=== PATIENT | female | born 1990 | race Asian ===

== ENCOUNTER 2019-10-13 11:34 | Emergency (ER) | payer OTHER ==
[~2019-10-13] VITALS: Ht 157.5 cm; Wt 77.1 kg
[2019-10-13 11:53] LABS: Urine WBC None Seen /hpf (0 - 5)
[2019-10-13 12:06] LABS: Urine Bacteria NONE SEEN /hpf (None Seen); Urine Blood Negative /uL (Negative); Urine Specific Gravity 1.012 (1.001-1.035)
[2019-10-13 12:17] LABS: Basophils # (auto) 0.1 uL; Eosinophils # (auto) 0.1 uL; Lymphocytes # (auto) 1.4 uL; Monocytes # (auto) 0.5 uL; Neutrophils # (auto) 5.7 uL
[2019-10-13 12:19] LABS: Basophils % (auto) 0.8 % (0.0-2.0); Eosinophils % (auto) 1.6 % (0.0-7.0); Hemoglobin 11.8 g/dL (12.2-16.2); Lymphocytes % (auto) 18.3 % (10.0-50.0); Mean Corpuscular Hemoglobin 24.8 pg (28.0-32.0); Mean Corpuscular Hgb Conc. 31.8 g/dL (32.0-36.0); Monocytes % (auto) 6.7 % (0.0-12.0); Neutrophils % (auto) 72.6 % (37.0-80.0); Nucleated Red Blood Cells % 0.1 %; Platelet Count (auto) 260 10^3/uL (140-450); Red Blood Cells 4.74 10^6/uL (4.0-5.20); Red Cell Distribution Width 18.8 % (11.8-14.3); White Blood Cell 7.9 10^3/uL (4.4-10.8)
[2019-10-13 12:42] LABS: BUN/Creatinine Ratio 10.3; Calcium 8.4 mg/dL (8.5-10.1); Potassium 3.8 mmol/L (3.5-5.1)
[2019-10-13 17:15] VITALS: BP 124/59
== END 2019-10-13 18:02 | disposition home or self-care (01) ==
LOC: ER 11:34
DX: O20.0 Threatened abortion (principal); Z3A.01 Less than 8 weeks gestation of pregnancy
CPT/HCPCS: 36415; 76801; 80048; 81001; 84702; 85025

== ENCOUNTER → 2022-06-19 | Outpatient (CLI) | payer OTHER ==
[2022-06-19 11:39] LABS: Amphetamine Screen, Urine NEGATIVE (NEGATIVE); Barbiturate Scree,Urine NEGATIVE (NEGATIVE); Benzodiazephine Screen, Urine NEGATIVE (NEGATIVE); Cannabinoid Screen, Urine NEGATIVE (NEGATIVE); Cocaine Screen, Urine NEGATIVE (NEGATIVE); Opiate Scree,Urine NEGATIVE (NEGATIVE); Phencyclidine Screen, Urine NEGATIVE (NEGATIVE)
== END | disposition home or self-care (01) ==
LOC: LAB 09:59
PROVIDERS: ATTEND Obstetrics & Gynecology
DX: Z34.80 Encounter for supervision of other normal pregnancy, unspecified trimester (principal); Z3A.00 Weeks of gestation of pregnancy not specified
CPT/HCPCS: 80307

== ENCOUNTER 2022-07-09 11:15 | Observation (INO) | payer OTHER | END 2022-07-09 14:25 | disposition home or self-care (01) | LOC: UNDOADMOB 11:15 → LDRP 11:15 → UNDODISOB 14:25 | PROVIDERS: ADMIT Obstetrics & Gynecology; ATTEND Obstetrics & Gynecology | DX: O48.0 Post-term pregnancy (principal); O62.9 Abnormality of forces of labor, unspecified; Z3A.40 40 weeks gestation of pregnancy | CPT/HCPCS: 59025; 76805; 76818; 81002; 87081; 94760; G0378 ==

== ENCOUNTER 2022-07-11 04:30 | Inpatient (IN) | payer OTHER ==
[~2022-07-11] VITALS: Ht 157.5 cm; Wt 88.0 kg
[2022-07-11] VITALS (13 sets, daily range): BP systolic 99–121; BP diastolic 46–64
[2022-07-11] MEDS ORDERED: WITCH HAZEL-GLYCERIN PAD TOP PRN (04:45)
[2022-07-11] MEDS ORDERED: BUTORPHANOL TARTRATE 2 MG/1 ML VIAL IV PRN ×2 (04:45)
[2022-07-11] MEDS ORDERED: PHISODERM TOP SOLN 240ML BTL TOP PRN (04:45)
[2022-07-11] MEDS ORDERED: PROMETHAZINE HCL 25 MG/ML 1ML IV PRN (04:45)
[2022-07-11] MEDS ORDERED: TERBUTALINE SULFATE 1 MG/ML 1ML VIAL SC PRN (04:45)
[2022-07-11] MEDS ORDERED: LIDOCAINE 2%HCL (LOCAL ANESTH.) INJ 10ml MDV IJ PRN (04:45)
[2022-07-11] MEDS ORDERED: DERMOPLAST 60ML BOTTLE TOP PRN (04:45)
[2022-07-11] MEDS ORDERED: PENICILLIN G POT 5MIL/D5 50ML 50 ML IV ONE (05:00)
[2022-07-11] MEDS ORDERED: CARBOPROST TROMETHAMINE 250 MCG/1ML VIAL IM PRN (05:15)
[2022-07-11] MEDS ORDERED: miSOPROStol 100 mcg TAB PR PRN (05:15)
[2022-07-11] MEDS ORDERED: miSOPROStol 100 mcg TAB SL PRN (05:15)
[2022-07-11] MEDS: LACTATED RINGER'S 1,000 ML IV SCH ×4 (05:22→20:53)
[2022-07-11] MEDS ORDERED: LACT. RINGERS/OXYTOCIN 20UNITS 1,000 ML IV SCH (05:30)
[2022-07-11] MEDS ORDERED: miSOPROStol 50 MCG per PRE-CUT 1/2 TAB PO PRN (07:15)
[2022-07-11 07:31] LABS: Basophils # (auto) 0.1 10 ^3/uL (0-0.2); Eosinophils # (auto) 0.1 10 ^3/uL (0-0.8); Hemoglobin 9.9 g/dL (12.2-16.2); Lymphocytes # (auto) 1.2 10 ^3/uL (0.4-5.4); Mean Corpuscular Hemoglobin 23.8 pg (28.0-32.0); Monocytes # (auto) 0.8 10 ^3/uL (0-1.3); Neutrophils # (auto) 6.1 10 ^3/uL (1.6-8.6)
[2022-07-11 07:33] LABS: Eosinophils % (auto) 1.2 % (0.0-7.0); Hematocrit 31.5 % (36.0-46.0); Lymphocytes % (auto) 14.7 % (10.0-50.0); Mean Corpuscular Hgb Conc. 31.3 g/dL (32.0-36.0); Mean Corpuscular Volume 76.3 fL (80.0-100.0); Monocytes % (auto) 9.8 % (0.0-12.0); Neutrophils % (auto) 73.3 % (37.0-80.0); Red Blood Cells 4.13 10^6/uL (4.0-5.20); Red Cell Distribution Width 19.3 % (11.8-14.3); White Blood Cell 8.3 10^3/uL (4.4-10.8)
[2022-07-11 07:41] LABS: Urine Bacteria NONE SEEN /hpf (None Seen); Urine Blood Negative /uL (Negative); Urine Specific Gravity 1.012 (1.001-1.035); Urine WBC <1 /hpf (0 - 5)
[2022-07-11 07:49] LABS: INR 0.91 (0.9-1.15)
[2022-07-11 07:57] LABS: Albumin 2.3 g/dL (3.4-5.0); Calcium 7.9 mg/dL (8.5-10.1); Potassium 3.8 mmol/L (3.5-5.1)
[2022-07-11 07:58] LABS: Alcohol, Urine < 3.0 mg/dL (0-10); Amphetamine Screen, Urine NEGATIVE (NEGATIVE); Barbiturate Scree,Urine NEGATIVE (NEGATIVE); Benzodiazephine Screen, Urine NEGATIVE (NEGATIVE); Cannabinoid Screen, Urine NEGATIVE (NEGATIVE); Cocaine Screen, Urine NEGATIVE (NEGATIVE); Opiate Scree,Urine NEGATIVE (NEGATIVE); Phencyclidine Screen, Urine NEGATIVE (NEGATIVE)
[2022-07-11 07:59] LABS: BUN/Creatinine Ratio 13.5
[2022-07-11 08:02] LABS: Bilirubin, Total 0.3 mg/dL (0.2-1.0); Total Protein 6.4 g/dL (6.4-8.2)
[2022-07-11] MEDS ORDERED: DOCU-94 PO (08:58)
[2022-07-11] MEDS ORDERED: IBUP800T27 PO (08:58)
[2022-07-11] MEDS ORDERED: HYDR-4902 PO (08:58)
[2022-07-11] MEDS ORDERED: SODIUM CITR/CITRIC ACID ORAL SOLN 30 ML ONE (08:58)
[2022-07-11] MEDS ORDERED: ONDANSETRON HCL 4 MG/2 ML VIAL IV PRN ×2 (09:00→10:45)
[2022-07-11] MEDS ORDERED: ceFAZolin 2 GM in D5W 5% 100 ML IV ONE (09:00)
[2022-07-11] MEDS ORDERED: PENICILLIN G POTASSIUM 2,500,000 UNITS in D5W 5% 50 ML IV SCH (09:00)
[2022-07-11] MEDS ORDERED: ceFAZolin 1GM/50ML 50 ML IV SCH (09:00)
[2022-07-11] MEDS ORDERED: LACT. RINGERS/OXYTOCIN 20UNITS 1,000 ML IV ONE (09:00)
[2022-07-11] MEDS ORDERED: GUM (CHEWING) 1 GUM CHEW CHEW ONE (09:00)
[2022-07-11] MEDS ORDERED: SODIUM CITR/CITRIC ACID ORAL SOLN 30 ML PO SCH (09:00)
[2022-07-11] MEDS ORDERED: TETRACAINE 1% INJ 2 ML VIAL IJ ONE (09:03)
[2022-07-11] MEDS ORDERED: MORPHINE SULF PF 5 MG/10 ML VIAL ONE (09:06)
[2022-07-11] MEDS ORDERED: fentaNYL CITRATE 100 MCG/2 ML VL ONE (09:37)
[2022-07-11] MEDS ORDERED: LACT. RINGERS/OXYTOCIN 20UNITS 500 ML IV ONE ×2 (10:00)
[2022-07-11] MEDS ORDERED: oxyTOCIN 10 UNIT/ML 10ML VIAL ONE (10:32)
[2022-07-11] MEDS ORDERED: NALBUPHINE HCL 10 MG/1ml INJECTION SUBCUT ONE (10:45)
[2022-07-11] MEDS ORDERED: diphenhdrAMINE HCL 50 MG/1 ML VL IV PRN (10:45)
[2022-07-11] MEDS ORDERED: NALOXONE HCL 0.4 MG/ML VIAL IV PRN (10:45)
[2022-07-11] MEDS ORDERED: KETOROLAC TROMETH 30 MG/ML 1ML VIAL IV PRN (10:45)
[2022-07-11] MEDS ORDERED: HYDROmorphone HCL 2 MG/ML VL/or syr IV PRN ×2 (10:45→11:30)
[2022-07-11] MEDS ORDERED: DexAMETHasone SOD PHOS 10MG/1ML VIAL INJ IV PRN (10:45)
[2022-07-11] MEDS ORDERED: HYDROmorphone HCL 2 MG/ML VL/or syr ONE (10:49)
[2022-07-11] MEDS: HYDROmorphone HCL 2 MG/ML VL/or syr ONE ×2 (11:00→11:11)
[2022-07-11] MEDS ORDERED: SUCCINYLCHOLINE CHLORIDE 20 MG/ML 10ML VIAL IV ONE (11:05)
[2022-07-11] MEDS: ACETAMINOPHEN IV 1000 MG/100ML (10MG/ML) IV PRN ×2 (12:49→23:37)
[2022-07-11] MEDS ORDERED: ePHEDrine SULFATE 50 MG/ML AMP IV ONE (16:48)
[2022-07-11] MEDS ORDERED: PROPOFOL 10 MG/ML 20 ML IV ONE (16:48)
[2022-07-11] MEDS: ceFAZolin 1GM/50ML 50 ML IV SCH (17:04)
[2022-07-11 20:32] LABS: Basophils # (auto) 0.1 10 ^3/uL (0-0.2); Eosinophils # (auto) 0 10 ^3/uL (0-0.8); Hemoglobin 8.2 g/dL (12.2-16.2); Lymphocytes # (auto) 1.2 10 ^3/uL (0.4-5.4); Red Blood Cells 3.42 10^6/uL (4.0-5.20)
[2022-07-11 20:34] LABS: Basophils % (auto) 0.4 % (0.0-2.0); Eosinophils % (auto) 0.1 % (0.0-7.0); Hematocrit 26.8 % (36.0-46.0); Lymphocytes % (auto) 9.8 % (10.0-50.0); Mean Corpuscular Hgb Conc. 30.5 g/dL (32.0-36.0); Mean Corpuscular Volume 78.4 fL (80.0-100.0); Monocytes # (auto) 0.8 10 ^3/uL (0-1.3); Monocytes % (auto) 6.7 % (0.0-12.0); Red Cell Distribution Width 19.9 % (11.8-14.3)
[2022-07-12] VITALS (14 sets, daily range): BP systolic 96–119; BP diastolic 49–69
[2022-07-12] MEDS ORDERED: SODIUM FERR GLUC 62.5MG/5ML 125 MG in SODIUM CHL 0.9% 100 ML IV SCH ×2
[2022-07-12] MEDS: ceFAZolin 1GM/50ML 50 ML IV SCH ×2 (01:00→08:04)
[2022-07-12 06:54] LABS: Eosinophils # (auto) 0 10 ^3/uL (0-0.8); Eosinophils % (auto) 0.2 % (0.0-7.0); Hematocrit 23.9 % (36.0-46.0); Hemoglobin 7.6 g/dL (12.2-16.2); Mean Corpuscular Hgb Conc. 31.8 g/dL (32.0-36.0)
[2022-07-12 06:56] LABS: Basophils # (auto) 0 10 ^3/uL (0-0.2); Basophils % (auto) 0.3 % (0.0-2.0); Lymphocytes # (auto) 1.1 10 ^3/uL (0.4-5.4); Lymphocytes % (auto) 9.9 % (10.0-50.0); Mean Corpuscular Hemoglobin 24.3 pg (28.0-32.0); Mean Corpuscular Volume 76.6 fL (80.0-100.0); Monocytes # (auto) 0.9 10 ^3/uL (0-1.3); Monocytes % (auto) 7.9 % (0.0-12.0); Neutrophils # (auto) 8.9 10 ^3/uL (1.6-8.6); Neutrophils % (auto) 81.7 % (37.0-80.0); Red Blood Cells 3.13 10^6/uL (4.0-5.20); Red Cell Distribution Width 19.6 % (11.8-14.3); White Blood Cell 10.9 10^3/uL (4.4-10.8)
[2022-07-12 07:07] LABS: RPR Non Reactive (Non Reactive)
[2022-07-12] MEDS ORDERED: BISACODYL 10 MG RECT SUPP PR PRN (07:30)
[2022-07-12] MEDS ORDERED: HYDROcodone-ACET 5/325MG TAB PO PRN (07:30)
[2022-07-12] MEDS: ACETAMINOPHEN IV 1000 MG/100ML (10MG/ML) IV PRN (08:05)
[2022-07-12] MEDS ORDERED: FER325T PO (08:24)
[2022-07-12] MEDS ORDERED: FERROUS SULFATE 325mg EC TAB PO SCH (10:00)
[2022-07-12] MEDS: FERROUS SULFATE 325mg EC TAB PO SCH ×2 (12:00→18:57)
[2022-07-12] MEDS: HYDROcodone-ACET 5/325MG TAB PO PRN ×2 (12:11→18:58)
[2022-07-12] MEDS: DOCUSATE SOD 100 MG CAP PO SCH ×2 (12:12→21:57)
[2022-07-12] MEDS: SIMETHICONE 80 MG CHEWABLE TABLET PO SCH ×3 (12:12→21:57)
[2022-07-12] MEDS: DOCUSATE CALCIUM 240 MG CAP PO SCH (12:12)
[2022-07-12] MEDS: IBUPROFEN 800 MG TAB PO PRN (15:55)
[2022-07-13] MEDS: IBUPROFEN 800 MG TAB PO PRN ×3 (00:09→21:32)
[2022-07-13 03:30] VITALS: BP 115/50
[2022-07-13] MEDS: HYDROcodone-ACET 5/325MG TAB PO PRN ×4 (03:56→23:30)
[2022-07-13] MEDS: SIMETHICONE 80 MG CHEWABLE TABLET PO SCH ×4 (05:49→21:31)
[2022-07-13 07:00] VITALS: BP 118/56
[2022-07-13] MEDS ORDERED: SERT25TA84 PO (08:05)
[2022-07-13] MEDS: SERTRALINE HCL 50 MG TAB PO SCH (10:21)
[2022-07-13] MEDS: DOCUSATE CALCIUM 240 MG CAP PO SCH (10:21)
[2022-07-13] MEDS: DOCUSATE SOD 100 MG CAP PO SCH ×2 (10:22→21:31)
[2022-07-13] MEDS: FERROUS SULFATE 325mg EC TAB PO SCH ×3 (10:32→21:31)
[2022-07-13 11:00] VITALS: BP 115/56
[2022-07-13 14:57] VITALS: BP 116/57
[2022-07-13 19:20] VITALS: BP 132/79
[2022-07-13 23:20] VITALS: BP 123/72
[2022-07-14 03:30] VITALS: BP 125/69
[2022-07-14] MEDS: SIMETHICONE 80 MG CHEWABLE TABLET PO SCH (05:31)
[2022-07-14] MEDS: IBUPROFEN 800 MG TAB PO PRN (05:32)
[2022-07-14 07:00] VITALS: BP 107/51
[2022-07-14] MEDS ORDERED: TETANUS-DIPTH-ACEL PERTUSSIS 0.5ML SYR Tdap IM ONE (10:00)
[2022-07-14] MEDS: DOCUSATE SOD 100 MG CAP PO SCH (10:54)
[2022-07-14] MEDS: SERTRALINE HCL 50 MG TAB PO SCH (10:54)
[2022-07-14] MEDS: DOCUSATE CALCIUM 240 MG CAP PO SCH (10:54)
[2022-07-14 11:00] VITALS: BP 133/58
[2022-07-14] MEDS: HYDROcodone-ACET 5/325MG TAB PO PRN (11:01)
[2022-07-14] MEDS: FERROUS SULFATE 325mg EC TAB PO SCH (11:01)
== END 2022-07-14 15:00 | disposition home or self-care (01) | DRG 784 ==
LOC: LDRP 04:30
PROVIDERS: ADMIT Obstetrics & Gynecology; ATTEND Obstetrics & Gynecology
PROC: 0UL70CZ Occlusion of Bilateral Fallopian Tubes with Extraluminal Device, Open Approach (ICD-10-PCS; 2022-07-11)
PROC: 10D00Z1 Extraction of Products of Conception, Low, Open Approach (ICD-10-PCS; principal; 2022-07-11 09:10)
DX: O48.0 Post-term pregnancy (principal); R71.0 Precipitous drop in hematocrit; Z37.0 Single live birth; O76 Abnormality in fetal heart rate and rhythm complicating labor and delivery; Z30.2 Encounter for sterilization; Z3A.40 40 weeks gestation of pregnancy; O99.345 Other mental disorders complicating the puerperium; F53.0 Postpartum depression; Z20.822 Contact with and (suspected) exposure to COVID-19; O99.214 Obesity complicating childbirth
CPT/HCPCS: 36415; 59025; 80053; 80307; 81001; 85025; 85610; 85730; 86592; 86850; 86900; 86901; 87426; 90715; 94760; 94762; 96360; 96361; 96372; G0378; J0131; J0330; J0690; J2405; J2590; J2704; J7060